=== PATIENT | male | born 1995 | race Caucasian/White ===

== ENCOUNTER → 2017-01-15 | Outpatient (CLI) | payer BC ==
--- OUTSIDE RECORDS SUMMARY | 2017-01-15 16:58 | XMS REPORT ---
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 Info Not Available Non Drug Allergy Problems Problem Type Condition Code Onset Dates Condition Status Assessment Encounter for dental examination Z01.20 Active Medications No Known Medications Procedures Procedure Coding System Code Date INTRAORL-PERIAPICAL 1 FILM 75276 CPT-4 D0220 Nov 22, 2015 INTRAORL-PERIAPICAL EA ADD FILM CPT-4 D0230 Nov 22, 2015 COMP ORAL EVALUATION - NEW/EST PT CPT-4 D0150 Nov 22, 2015 TOPICAL FLUORIDE VARNISH CPT-4 D1206 Nov 22, 2015 BITEWINGS - FOUR FILMS CPT-4 D0274 Nov 22, 2015 INTRAORL-PERIAPICAL EA ADD FILM CPT-4 D0230 Nov 22, 2015 PROPHYLAXIS - ADULT CPT-4 D1110 Nov 22, 2015 PANORAMIC FILM SEE ALSO CODE 88170 CPT-4 D0330 Nov 22, 2015 Vital Signs Date/Time: Nov 22, 2015 Blood Pressure Diastolic 80 mmHg Blood Pressure Systolic 127 mmHg Results No Known Results Summary Purpose e[employer] Submission
--- NOTE | 2017-01-15 17:16 | Diagnostic Imaging Report ---
INDICATION: Back pain. COMPARISON: None FINDINGS: Frontal and lateral views of the lumbar spine were obtained. Alignment and vertebral heights are maintained. There is no fracture or destructive process. Limited views of the abdomen demonstrate nonobstructive bowel gas pattern. IMPRESSION: 1. No acute fracture or dislocation of the lumbar spine. Dictated by: Dictated on workstation # [id number]
== END ==
LOC: RAD 16:54
PROVIDERS: ATTEND Chiropractor
DX: M54.15 Radiculopathy, thoracolumbar region (principal); M54.5 Low back pain; M79.1 Myalgia; R29.3 Abnormal posture
CPT/HCPCS: 72100